=== PATIENT | female | born 1975 | race Caucasian/White ===

== ENCOUNTER 2016-04-19 18:24 | Inpatient (IN) | payer OTHER ==
[2015-09-25 15:43] VITALS: BP 127/88
[2016-04-19] MEDS ORDERED: RINGERS SOLUTION,LACTATED 1,000 ML IV ONE (18:34)
[2016-04-19 19:07] LABS: Hematocrit 31.8 % (37.0-47.0); Hemoglobin 10.8 gm/dL (12.5-16.0); Mean Cell Volume 92.4 fl (78-100); Mean Corpuscular Hemoglobin 31.4 pg (27-31); Mean Platelet Volume 9.5 fl (6.0-9.5); Neutrophil # 6.1 K/mm3 (1.3-6.0); Neutrophil % 71.9 % (42-75.0); Platelet Count 240 K/mm3 (150-450); Red Blood Count 3.44 M/mm3 (4.2-5.4); Red Cell Distribution Width 12.5 % (11.5-14.0); White Blood Count 8.5 K/mm3 (4.0-10.5)
[2016-04-19 19:14] LABS: Urine Appearance Slightly Cloudy; Urine Bilirubin Negative (NEGATIVE); Urine Blood 250 /ul (NEGATIVE); Urine Color Yellow; Urine Ketone Negative (NEGATIVE)
[2016-04-19 19:15] LABS: Urine Nitrite Negative (NEGATIVE); Urine Protein 30 mg/dL (NEGATIVE); Urine Urobilinogen Normal (NORMAL)
[2016-04-19 19:17] LABS: Urine Bacteria 3+; Urine RBC >50 /hpf (0-5); Urine WBC 0-5 /hpf (0-5)
[2016-04-19] MEDS ORDERED: BETAMETH ACET/BETAMET SOD PHOS 6 MG/ML VIAL IM ONE (19:17)
[2016-04-19 19:23] LABS: Albumin * 2.9 gm/dl (3.4-5.0); Anion Gap 13.8 mmol/L (6.8-13.8); BUN/Creatinine Ratio 12.9 (9.0-21.6); Bilirubin, Total 0.3 mg/dL (0.0-1.1); Ca. Corrected For Albumin 9.6 mg/dL (8.4-10.2); Carbon Dioxide 25.6 mmol/L (24-32.6); Potassium 3.4 mmol/L (3.4-4.6)
[2016-04-19 19:26] LABS: Cocaine Ur Negative (NEGATIVE); Urine Barbiturate Negative (NEGATIVE); Urine Benzodiazepines Negative (NEGATIVE); Urine Opiates Negative (NEGATIVE); Urine PCP Negative (NEGATIVE); Urine THC Negative (NEGATIVE)
[2016-04-19 19:43] LABS: INR 0.97 INR (0.90-1.10); Prothrombin Time (Patient) 10.1 Seconds (9.4-11.4)
[2016-04-19] MEDS ORDERED: MAGNESIUM SULFATE IN WATER 50 ML IV ONE (20:08)
[2016-04-19] MEDS ORDERED: MAGNESIUM SULFATE IN WATER 1,000 ML IV SCH (20:15)
== END 2016-04-19 21:00 | disposition short-term general hospital (02) | DRG 782 ==
LOC: OBCLINIC 18:24 → OB 19:12
PROVIDERS: ADMIT Obstetrics & Gynecology; ATTEND Obstetrics & Gynecology
DX: O45.93 Premature separation of placenta, unspecified, third trimester (principal); Z3A.31 31 weeks gestation of pregnancy; Z79.82 Long term (current) use of aspirin

== ENCOUNTER 2016-06-10 07:25 | Inpatient (IN) | payer OTHER ==
--- OUTSIDE RECORDS SUMMARY | 2016-06-10 07:30 | XMS REPORT | Continuity of Care Document ---
:1975 Author Organization [facility] ([facility]) Address [address] [place] [address] Phone [phone] Care Team Providers Name Role Phone Noemí Horowitz Primary Care Provider [phone] Source Comments This disclosure is being made pursuant to the Care Everywhere program, applicable federal and state laws, and may not contain all informaitonavailable regarding this patient.[facility] ([facility]) Active Allergies and Adverse Reactions No Known Allergies Current Medications Prescription Sig. Disp. Refills Start Date End Date Status multivitamin Take 1 tablet by Active with minerals 28-0.8 mg mouth daily. per tablet aspirin 81 mg EC tablet Take 81 mg by mouth Active daily. ferrous gluconate 324 mg Take 324 mg by Active (38 mg iron) tablet mouth daily. calcium carbonate (200 mg Take 200 mg by Active Ca) 500 mg chewable mouth 3 times tablet daily. Active Problems Problem Noted Date Factor V Leiden 04/19/2016 Currently Estimated Date of Delivery Comments Yes 06/18/2016 Based on Patient Reported Most Recent Encounters Date Type Specialty Providers Description 05/13/2016 Office Visit Maternal Savannah Washington I, Chief Comp: Patient Medicine MD Reported Reason For Visit 05/13/2016 Hospital Encounter Obstetrics Savannah Washington I, Dx: Vaginal MD bleeding 04/21/2016 Hospital Encounter General Care Inpatient - Adult 04/21/2016 Anesthesia Event General Care Sarah Mcdaniel, Inpatient - Adult 04/19/2016 - Hospital Encounter General Care Pamela Das, Dx: Normal IUP 04/21/2016 Inpatient - Adult (intrauterine Nuangchamnong, ) torin Murphy MD Lita Gallegos ultrasound, third M, trimester (Primary Dx) 04/19/2016 Telephone Obstetrics Pamella Howe MD Social History Tobacco Use Types Packs/Day Years Used Date Never Smoker Alcohol Use Drinks/Week oz/Week Comments Yes 0 Standard drinks or equivalent 0.0 Rarely, not while Last Filed Vital Signs Vital Sign Reading Time Taken Blood Pressure 108/68 04/21/2016 7:00 AM FINISHING ROOM SUPERVISOR Pulse 101 04/19/2016 11:21 PM FINISHING ROOM SUPERVISOR Temperature 37 C (98.6 F) 04/21/2016 4:00 AM FINISHING ROOM SUPERVISOR Respiratory Rate 17 04/20/2016 11:00 PM FINISHING ROOM SUPERVISOR Height 1.651 m (5' 5") 04/19/2016 11:09 PM FINISHING ROOM SUPERVISOR Weight 58.968 kg (130 lb) 04/19/2016 11:09 PM FINISHING ROOM SUPERVISOR Body Mass Index 21.63 04/19/2016 11:09 PM FINISHING ROOM SUPERVISOR Oxygen Saturation - - Plan of Care Health Maintenance Due Date Last Done Comments Hepatitis B Vaccine (1 of 3 - Primary Series) 1975 Tdap Vaccine 1987 Lipid Disorder Screening 1994 MMR Vaccine 1994 Td Vaccine 1994 Cervical Cancer Screening 2006 09/13/2002 Influenza Vaccine: Seasonal (#1) 10/08/2015 Mammogram 2016 Results from Last 3 Months BOAT PULLER/ DIAGNOSIS ULTRASOUND (05/13/2016 12:32 PM) Narrative Obstetric Ultrasound Report Limited Scan Referral from: Dr. Jordan Groves [place] [address] Department of Obstetrics & Gynecology [address] [place], [place] OB Clinic IVF/ Endocrine PATIENT INFORMATION: Name: KLAUDIA AC#: [id number] Age:41 y/oExam Date: 05/13/2016 :1975 Visit #: 1 LMP:Not Available Location: Diagnosis & Treatment Unit # Fetuses: 1 INDICATION:Patient with vaginal bleeding.Advanced maternal age. History of PTD x2 for HELLP and PET. Evaluate growth and complete anatomy. DATING: Assigned GA GA by LMPGA by US (WISAM)WISAM NA 34 4/7 wks 34 6/7 wks06/18/16 BIOMETRY: BPD: 88.9 mm36 0/7 wksHC:314.1 mm 35 2/7 wks(35%) (67%) Femur: 65.2 mm33 4/7 wksAC:330.2 mm 37 0/7 wks(85%) (33%) EFW: 2770 gms6 lbs 2 oz (78%) Lat Ventricles: 5.2 mm Heart Rate: 146 bpm FL/AC:0.2FL/BPD: 0.73 PRESENTATION/CORD/PLACENTA/FLUID/CERVIX: Presentation: Cephalic Placenta: Anterior.There Is No Evidence Of Placenta Previa. Amniotic Fluid: Maximum Vertical Pocket=64 mm.Subjective AF Volume : Normal. (LHC=029 mm) ANATOMICAL SURVEY: Normal ------ Lateral Ventricles Four Chamber View Cardiac Woodworth Cardiac Position Heart Rate Diaphragm StomachKidney - Left Kidney - Right Bladder Hand - Right Abnormal -------- None identified EFW Summary Table Exam DateFetus #EFW Percentile ------ - 05/13/16 [id number] % 55 % AMNIOTIC FLUID VOLUME: NORMALTotal CHERIE: 182 mm.Subjective AF Volume: Normal. Maximum Vertical Pocket:64 mm CERVIX: Suboptimal visualization COMMENTS: I attest to having personally viewed the images and my comments and impression are as follows: The exam was limited due to the late gestational age. The exam was limited to growth, fluid and limited anatomy. IUP consistent with given WISAM. Appropriate amniotic fluid. The anatomical survey was completed on today's ultrasound. These reassuring findings were discussed with Klaudia and her . Thank you for the opportunity to participate in your patient's care. Dr. Savannah Washington MD ([id number]) Dr. Ester Lucas MD Nuclear Fuel Enrichment Technician: Mali Granda RDMS RVT Procedure Note Juanito, Incoming Imaging Results - Tue May 13, 2016 11:48 AM FINISHING ROOM SUPERVISOR Obstetric Ultrasound Report Limited Scan Referral from: Dr. Jordan Groves [facility] [address] Department of Obstetrics &[place] [address] [address] [place], [place] OB Clinic IVF/ Endocrine PATIENT INFORMATION: Name: KLAUDIA ADAM MR#: [id number] Age: 41 y/o Exam Date: 05/13/2016 : 1975 Visit #: 1 LMP: Not Available Location: Diagnosis & Treatment Unit # Fetuses: 1 INDICATION: Patient with vaginal bleeding. Advanced maternal age.History of PTD x2 for HELLP and PET. Evaluate growth and complete anatomy. DATING: Assigned GA GA by LMP GA by US (WISAM) WISAM NA 34 4/7 wks 34 6/7 wks 06/18/16 BIOMETRY: BPD: 88.9 mm 36 0/7 wks HC: 314.1 mm 35 2/7 wks(35%) (67%) Femur: 65.2 mm 33 4/7 wks AC: 330.2 mm 37 0/7 wks(85%) (33%) EFW: 2770 gms 6 lbs 2 oz (78%) Lat Ventricles: 5.2 mm Heart Rate: 146 bpm FL/AC: 0.2 FL/BPD: 0.73 PRESENTATION/CORD/PLACENTA/FLUID/CERVIX: Presentation: Cephalic Placenta: Anterior. There Is No Evidence Of Placenta Previa. Amniotic Fluid: Maximum Vertical Pocket=64 mm. Subjective AFVolume: Normal. (KVP=388 mm) ANATOMICAL SURVEY: Normal ------ Lateral Ventricles Four Chamber View Cardiac Woodworth Cardiac Position Heart Rate Diaphragm Stomach Kidney - Left Kidney - Right Bladder Hand - Right Abnormal -------- None identified EFW Summary Table Exam Date Fetus # EFW Percentile --------- ------- ---- 05/13/16 1 2770 78 % 04/21/16 1 1815 55 % AMNIOTIC FLUID VOLUME: NORMAL Total CHERIE: 182 mm. Subjective AF Volume: Normal. Maximum Vertical Pocket: 64 mm CERVIX: Suboptimal visualization COMMENTS: I attest to having personally viewed the images and my comments and impression are as follows: The exam was limited due to the late gestational age. The exam was limited to growth, fluid and limited anatomy. IUP consistent with given WISAM. Appropriate amniotic fluid. The anatomical survey was completed on today's ultrasound. These reassuring findings were discussed with Klaudia and her . Thank you for the opportunity to participate in your patient's care. Dr. Savannah Washington MD ([id number]) Dr. Ester Lucas MD Nuclear Fuel Enrichment Technician: Mali Granda RDMS T OB ULTRASOUND (LDR) (04/21/2016 10:47 AM) Narrative Obstetric Ultrasound Report Detailed Survey Referral from: Dr. Jordan Groves [facility] [address] Department of Obstetrics & [place] [place] [address] PATIENT INFORMATION: Name: BRIA AC#: [id number] Age:40 y/oExam Date: 04/21/2016 :1975 Visit #: 1 LMP:Not Available Location:Labor and Delivery # Fetuses: 1 INDICATION:Patient referred for a 4 cm hematoma and vaginal bleeding. History of PET at 36 weeks, HELLP at 25 and Factor V Leiden. DATING: Assigned GA GA by LMPGA by US (WISAM)WISAM NA 31 3/7 wks 31 5/7 wks06/18/16 BIOMETRY: BPD: 81.2 mm32 4/7 wksHC:295.0 mm 32 4/7 wks(41%) (58%) Femur: 59.5 mm31 0/7 wksAC:277.2 mm 31 5/7 wks(48%) (36%) EFW: 1815 gms4 lbs 0 oz (55%) Lat Ventricles: 4.96 mmCisterna Magna: 7.07 mm Nasal Bone: Present-12.3 mmFetal Heart Rate: 124 bpm FL/AC:0.21 HL/BPD: 0.65 FL/BPD: 0.73 Humerus:52.9 mm30 6 (36%) PRESENTATION/CORD/PLACENTA/FLUID/CERVIX: Presentation: Cephalic Umbilical Cord: 3 Vessel Cord.Normal insertion into the placenta. Placenta: Anterior.There Is No Evidence Of Placenta Previa. Amniotic Fluid: Maximum Vertical Pocket=70 mm.Subjective AF Volume : Normal. (SWW=996 mm) Cervix: Normal ANATOMICAL SURVEY: Normal ------ Lateral Ventricles Cerebellum Cisterna Magna Profile Palate Nose Lips Cervical Spine Thoracic Spine Lumbar Spine Sacrum Four Chamber View RVOT LVOT Aortic ArchCardiac Woodworth Cardiac Position Heart Rate Ductal ArchIVC SVC Diaphragm Ventral Wall Stomach Kidney - LeftKidney - Right Bladder Forearm - Left Forearm - RightHand - Left Lower Leg - Left Lower Leg - Right Foot - LeftFoot - Right Suboptimal Hand - Right Abnormal -------- None identified TARGETED CARDIAC: Ductal Arch: Normal IVC: Normal SVC: Normal MANAGER MULTIMEDIA FINDINGS: Ovaries:Left:Not Seen Right: Not Seen EFW Summary Table Exam DateFetus #EFW Percentile ------ - [id number] 55 % AMNIOTIC FLUID VOLUME: NORMALTotal CHERIE: 232 mm.Subjective AF Volume: Normal. Maximum Vertical Pocket:70 mm CERVIX: Visualized Cervical Evaluation: Yes Cervical Approach: Transabdominal COMMENTS: I attest to having personally viewed the images and my comments and impression are as follows: The exam was limited due to the late gestational age. IUP consistent with given WISAM. Within the limits of ultrasound, no structural anomalies were seen. Appropriate amniotic fluid. The nasal and humerus measure within the normal limits. I consulted on this patient on labor and delivery. Please see separate EPIC note. No evidence of previa or low lying placenta on today's scan. Some fine echogenic material in amniotic fluid in certain views. No apparent hematoma type structure on today's scan. Patient improved and reports minimal/scant vaginal bleeding. Please follow up as clinically indicated. Discussed findings with Dr Mercado. Follow up scan in 3-4 weeks for growth is recommended. Thank you for allowing our unit to contribute to your patient's care. Katalina Lora, D.O. Dr. Katalina Lora MD ([id number]) Nuclear Fuel Enrichment Technician: Mali Granda RDMS RVT Procedure Note Juanito, Incoming Imaging Results - ThuApr 21, 2016 11:16 AM FINISHING ROOM SUPERVISOR Obstetric Ultrasound Report Detailed Survey Referral from: Dr. Jordan Groves [facility] [address] Department of Obstetrics &[place] [address] [address] [place], [place] PATIENT INFORMATION: Name: BRIA ADAM MR#: [id number] Age: 40 y/o Exam Date: 04/21/2016 : 1975 Visit #: 1 LMP: Not Available Location: Labor and Delivery # Fetuses: 1 INDICATION: Patient referred for a 4 cm hematoma and vaginal bleeding. History of PET at 36 weeks, HELLP at 25 and Factor V Leiden. DATING: Assigned GA GA by LMP GA by US (WISAM) WISAM NA 31 3/7 wks 31 5/7 wks 06/18/16 BIOMETRY: BPD: 81.2 mm 32 4/7 wks HC: 295.0 mm 32 4/7 wks(41%) (58%) Femur: 59.5 mm 31 0/7 wks AC: 277.2 mm 31 5/7 wks(48%) (36%) EFW: 1815 gms 4 lbs 0 oz (55%) Lat Ventricles: 4.96 mm Cisterna Magna: 7.07 mm Nasal Bone: Present-12.3 mm Heart Rate: 124 bpm FL/AC: 0.21 HL/BPD: 0.65 FL/BPD: 0.73 Humerus: 52.9 mm 306 (36%) PRESENTATION/CORD/PLACENTA/FLUID/CERVIX: Presentation: Cephalic Umbilical Cord: 3 Vessel Cord. Normal insertion into the placenta. Placenta: Anterior. There Is No Evidence Of Placenta Previa. Amniotic Fluid: Maximum Vertical Pocket=70 mm. Subjective AFVolume: Normal. (ZGA=021 mm) Cervix: Normal ANATOMICAL SURVEY: Normal ------ Lateral Ventricles Cerebellum Cisterna Magna Profile Palate Nose Lips Cervical Spine Thoracic Spine Lumbar Spine Sacrum Four Chamber View RVOT LVOT Aortic Arch Cardiac Woodworth Cardiac Position Heart Rate Ductal Arch IVC SVC Diaphragm Ventral Wall Stomach Kidney - Left Kidney - Right Bladder Forearm - Left Forearm - Right Hand - Left Lower Leg - Left Lower Leg - Right Foot - Left Foot - Right Suboptimal Hand - Right Abnormal -------- None identified TARGETED CARDIAC: Ductal Arch: Normal IVC: Normal SVC: Normal MANAGER MULTIMEDIA FINDINGS: Ovaries: Left: Not Seen Right: Not Seen EFW Summary Table Exam Date Fetus # EFW Percentile --------- ------- ---- 04/21/16 1 1815 55 % AMNIOTIC FLUID VOLUME: NORMAL Total CHERIE: 232 mm. Subjective AF Volume: Normal. Maximum Vertical Pocket: 70 mm CERVIX: Visualized Cervical Evaluation: Yes Cervical Approach: Transabdominal COMMENTS: I attest to having personally viewed the images and my comments and impression are as follows: The exam was limited due to the late gestational age. IUP consistent with given WISAM. Within the limits of ultrasound, no structural anomalies were seen. Appropriate amniotic fluid. The nasal and humerus measure within the normal limits. I consulted on this patient on labor and delivery. Please see separate EPIC note. No evidence of previa or low lying placenta on today's scan. Some fine echogenic material in amniotic fluid in certain views. No apparent hematoma type structure on today's scan. Patient improved and reports minimal/scant vaginal bleeding. Please follow up as clinically indicated. Discussed findings with Dr Mercado. Follow up scan in 3-4 weeks for growth is recommended. Thank you for allowing our unit to contribute to your patient's care. Katalina Lora D.O. Dr. Katalina Lora MD ([id number]) Nuclear Fuel Enrichment Technician: Mali Granda RDMS RVT GROUP B STREP CULTURE (04/20/2016 2:08 PM) Component Value Range Group B Culture Growth Streptococcus agalactiae(A) Specimen Vaginal/Rectal Narrative Identification performed by MALDI-TOF mass spectrometry (MS).The performance characteristics of MALDI-TOF MS were determined by the [facility].It has not been cleared orApproved by the FDA. The FDA has determined that such clearance or approval is not necessary.This test is for clinical purposes. It should not be regarded as investigational or for research.The laboratory is certified under the Clinical Laboratory Improvement Amendments of 1988 (CLIA) as qualified to perform high complexity clinical laboratory testing. Organism Antibiotic Method Susceptibility Streptococcus agalactiae CEFTRIAXONE <=0.12: Susceptible Streptococcus agalactiae CLINDAMYCIN <=0.12: Susceptible Streptococcus agalactiae PENICILLIN G 0.06: Susceptible Streptococcus agalactiae VANCOMYCIN <=0.5: Susceptible GROUP B STREPTOCOCCUS PCR (04/20/2016 2:08 PM) Component Value Range GRPBPCR Positive(A)Comment: Negative Call laboratory [phone]) to request antimicrobial susceptibility testing if patient is beta-lactam allergic. Specimen Vaginal/Rectal Narrative Test methodology:Nucleic acid amplification; illumigene Assay (Particle) The performance characteristics of this test were determined by the [facility].It has not been cleared or approved by the U.S. Food and DrugAdministration (FDA). The FDA has determined that such clearance or approval is not necessary.This test is for clinical purposes.It should not be regarded as investigational or for research. The laboratory is certified under the Clinical Laboratory Improvement Amendments of 1988 (CLIA) as qualified to perform high complexity clinical laboratory testing. TYPE AND SCREEN (BLOOD TYPE(ABORH) AND RBC ANTIBODY SCREEN) (04/19/2016 11:01 PM ) Component Value Range ABORH O Positive Specimen Expiration Date 2016-04-22 Antibody Screen Negative Specimen Blood FIBRINOGEN (04/19/2016 10:58 PM) Component Value Range Fibrinogen 525(H) 180-400 mg/dL Specimen Blood PT/INR (PROTHROMBIN TIME/INR) VENOUS (04/19/2016 10:58 PM) Component Value Range PT (Prothrombin Time) 10 9-12 secs INR 0.9 <4.0 Specimen Blood CBC (COMPLETE BLOOD COUNT) (04/19/2016 10:58 PM) Component Value Range WBC Count 12.5(H) 3.7-10.5 K/MM3 RBC Count 3.42(L) 4.00-5.20 M/MM3 Hemoglobin 10.8(L) 11.9-15.5 g/dL Hematocrit 31(L) 35-47 % MCV (Mean Corpuscular Volume) 91 82-99 FL MCH (Mean Corpuscular Hemoglobin) 32 25-35 PG MCHC (Mean Corpuscular Hemoglobin Concentration) 35 32-36 % Platelet Count 227 150-400 K/MM3 MPV (Mean Platelet Volume) 9.4 9.4-12.3 FL RBC Dist Width-STD 40.7 36.4-46.3 FL RBC Distrib Width 12.4 9.0-14.5 % Nucleated RBC 0 /100 WBC Specimen Whole Blood
[2016-06-10] MEDS ORDERED: PENICILLIN G POTASSIUM 5 MILLIONUNT in DEXTROSE 5 % IN WATER 100 ML IV ONE ×2 (07:31)
[2016-06-10] MEDS ORDERED: RINGERS SOLUTION,LACTATED 1,000 ML IV ONE (07:31)
[2016-06-10] MEDS ORDERED: RINGERS SOLUTION,LACTATED 1,000 ML IV PRN (07:31)
[2016-06-10] MEDS ORDERED: LIDOCAINE HCL 50 ML VIAL PERI PRN (07:31)
[2016-06-10] MEDS ORDERED: OXYTOCIN/DEXTROSE 5%-WATER 30 UNITS/500 ML BAG IV ONE ×2 (07:31→12:00)
[2016-06-10] MEDS ORDERED: BUPIVACAINE HCL/0.9 % NACL/PF 250 ML EP PRN (07:46)
--- NOTE | 2016-06-10 07:50 | OR ---
Anesthesia Pre Procedure Eval Date of Service: 06/10/16 Pre Procedure Evaluation: Last Vital Signs Temp 36.2 C L 05/18/12 20:55 Pulse Resp BP 127/88 09/25/15 15:42 Pulse Ox Anesthesia Pre Procedure Evaluation Heart Rate:81 Blood Pressure:138/92 Termperature:36.7 Respiratory Rate:20 SaO2:99 DATE: 06/10/2016 TIME: INDICATIONS: Active labor, labor pain PAST MEDICAL HISTORY: Multipara patient in active labor requesting labor analgesia. She is currently at 7 cm dilatation. EXAM: Heart regular; lungs clear ASSESSMENT OF MEDICAL STATUS: Appropriate candidate for labor analgesia PLANNED PROCEDURE: Combination spinal epidural for labor analgesia Home Medications: HOME MEDICATIONS Aspirin [Aspirin Chewable] 81 mg PO DAILY 04/07/16 [Last Taken 04/18/16 09:00] Ferrous Sulfate [Iron] 325 mg PO DAILY 04/07/16 [Last Taken 04/18/16 09:00] Vit#96/Ferrous Fum/FA [ S] 1 tab PO DAILY 04/07/16 [Last Taken 04/18/16 09:00]
[2016-06-10] MEDS ORDERED: fentaNYL CITRATE/PF 50 MCG/ML AMPUL IT SCH (08:00)
--- NOTE | 2016-06-10 08:10 | OR ---
Anesthesia Procedure Note - Anesthesia Procedure Note Date of Service: 06/10/16 Narrative: Vital Signs - Last Taken Temp 36.2 C L 05/18/12 20:55 Pulse Resp BP 127/88 09/25/15 15:42 Pulse Ox 06/10/16 08:07 ANESTHESIA PROCEDURE NOTE Date of Procedure: 06/10/2016 Time of procedure: 750. Performed by: FRANKI Gan CRNA, MSN Industrial Sales Manager: Landy Gonzalez RN. Preprocedure diagnosis: Labor, labor pain. Post procedure diagnosis: Same. Procedure: Labor Epidural Placement L3 4. Indications: Labor pain. Findings: See below. Details of the procedure: The patient was placed on the side of the bed in sitting position. The patient was prepped with DuraPrep and draped in a sterile fashion. Lidocaine 1% was infiltrated to the skin and subcutaneous tissues at the level of the L3 4 interspace. The epidural space was identified using a 18-gauge Tuohy needle with [id number] technique. Fentanyl 20 g was given intrathecally the intrathecal needle was then removed and the epidural catheter was threaded approximately 4 cm, the epidural needle was then removed, and after careful aspiration 3 mL of 1.5% lidocaine with 1-200,000 epinephrine was injected without change in maternal heart rate or sensorium. The catheter was then taped in place. EBL: Minimal. Fluids: N/A. Specimen: N/A. Post procedure condition: The patient tolerated the procedure well with good relief. No complications were noted. Thank you for this consultation. Kip Asencio CRNA, ARNP, MSN
[2016-06-10 08:51] LABS: Hemoglobin 11.9 gm/dL (12.5-16.0); Mean Cell Volume 91.4 fl (78-100); Mean Corpuscular Hemoglobin 30.2 pg (27-31); Mean Corpuscular Hgb Conc 33.1 g/dl (32-36); Mean Platelet Volume 10.2 fl (6.0-9.5); Neutrophil # 6.8 K/mm3 (1.3-6.0); Neutrophil % 76.7 % (42-75.0); Platelet Count 249 K/mm3 (150-450); Red Blood Count 3.94 M/mm3 (4.2-5.4); Red Cell Distribution Width 13.2 % (11.5-14.0); White Blood Count 8.8 K/mm3 (4.0-10.5)
[2016-06-10 09:05] LABS: Albumin * 2.6 gm/dl (3.4-5.0); Anion Gap 12.6 mmol/L (6.8-13.8); BUN/Creatinine Ratio 13.7 (9.0-21.6); Ca. Corrected For Albumin 9.6 mg/dL (8.4-10.2); Calcium * 8.8 mg/dL (7.9-10.9); Carbon Dioxide 24.6 mmol/L (24-32.6); Potassium 4.2 mmol/L (3.4-4.6); Total Protein 6.6 gm/dL (6.2-8.2)
[2016-06-10 09:20] LABS: Bilirubin, Total 0.3 mg/dL (0.0-1.1)
[2016-06-10 09:33] LABS: Random Urine Total Protein 24.4 mg/dL (0-12)
[2016-06-10] MEDS ORDERED: PENICILLIN G POTASSIUM 2.5 MILLIONUNT in DEXTROSE 5 % IN WATER 100 ML IV SCH ×2 (11:32)
[2016-06-10] MEDS ORDERED: OXYTOCIN/DEXTROSE 5%-WATER 500 UNITS/8,333.33 ML BAG IV ONE (11:41)
[2016-06-10] MEDS ORDERED: oxyCODONE HCL/ACETAMINOPHEN 1 TAB TABLET PO PRN (11:41)
[2016-06-10] MEDS ORDERED: SENNOSIDES 8.6 MG TABLET PO PRN (11:41)
[2016-06-10] MEDS ORDERED: BENZOCAINE/MENTHOL 81 SPRAY CAN TP PRN (11:41)
[2016-06-10] MEDS ORDERED: GLYCERIN/WITCH HAZEL LEAF 40 APPL BOX TP PRN (11:41)
[2016-06-10] MEDS ORDERED: HYDROCORTISONE 30 APPL TUBE TP PRN (11:41)
[2016-06-10] MEDS ORDERED: BISACODYL 10 MG SUPP.RECT RC PRN (11:41)
--- NOTE | 2016-06-10 11:56 | OR ---
Operative Report - Dictated Report Narrative: Spontaneous vaginal delivery of viable male in FELY position at 1124 on 06/10/2016 with Apgars 9 and 9, weighing 3388 g. Cord clamping delayed approximately 1 minute Placenta delivered complete, intact, with three vessel cord Estimated blood loss: less than 50 ml Lacerations: None History for MU Definition: * The number of deliveries resulting in a live the patient experienced prior to current hospitalization * The previous delivery of live twins or any live multiple gestation is considered one live event. *If primagravida or nulliparous is documented select zero for the number of previous live births. Live Events: 4
[2016-06-10] MEDS: IBUPROFEN 800 MG TABLET PO PRN (13:13)
[2016-06-10] MEDS: oxyCODONE HCL/ACETAMINOPHEN 1 TAB TABLET PO PRN ×2 (13:13→16:28)
[2016-06-10] MEDS: DOCUSATE SODIUM 100 MG CAPSULE PO SCH (21:06)
[2016-06-11] MEDS: IBUPROFEN 800 MG TABLET PO PRN ×4 (00:07→20:49)
[2016-06-11] MEDS: oxyCODONE HCL/ACETAMINOPHEN 1 TAB TABLET PO PRN ×5 (02:02→20:48)
--- NOTE | 2016-06-11 09:20 | PN ---
Subjective - Date and Time Seen Date: 06/11/16 Time: 09:18 Objective - Vitals Vitals: Last Vital Signs Temp 36.6 C 06/11/16 06:35 Pulse 68 06/11/16 06:35 Resp 18 06/11/16 06:35 BP 146/85 06/11/16 08:30 Pulse Ox 99 06/11/16 06:35 Patient denies complaints. Lochia wnl Abdomen - soft, nontender Uterus - firm, at umbilicus - 1 No calf tenderness Impression: day #1 - s/p spontaneous vaginal delivery. Mild preeclampsia-stable. Plan: Continue routine care. Monitor blood pressures and observe for signs and symptoms of severe preeclampsia - Abnormal Lab Findings Abnormal Lab Findings: Abnormal Lab Results 06/10/16 Range/Units 09:10 Ur Random Creatinine 55.4 L (60-200) mg/dL U Random Total Protein 24.4 H (0-12) mg/dL U Sarles Prot/Creat Ratio 440 H (0-199) mg/gm Cauti Physician Documentation - Urinary Catheter Management Urethral (Wang) Date of Insertion: 06/10/16 Time of Insertion: 09:10 Date of Removal: 06/10/16 Time of Removal: 11:15
[2016-06-11] MEDS: PRENATAL VIT#96/FERROUS FUM/FA 1 TAB TABLET PO SCH (09:32)
[2016-06-11] MEDS: FERROUS SULFATE 325 MG TABLET PO SCH (09:33)
[2016-06-11] MEDS: DOCUSATE SODIUM 100 MG CAPSULE PO SCH ×2 (09:33→20:48)
[2016-06-12] MEDS: oxyCODONE HCL/ACETAMINOPHEN 1 TAB TABLET PO PRN ×3 (01:51→11:15)
[2016-06-12] MEDS: IBUPROFEN 800 MG TABLET PO PRN (04:14)
--- NOTE | 2016-06-12 08:49 | PN ---
Subjective - Date and Time Seen Date: 06/12/16 Time: 08:48 Objective - Vitals Vitals: Last Vital Signs Temp 37.0 C 06/12/16 07:35 Pulse 96 06/12/16 07:35 Resp 16 06/12/16 07:35 BP 147/80 06/12/16 07:35 Pulse Ox 98 06/12/16 07:35 Patient denies complaints. Lochia wnl Abdomen - soft, nontender Uterus - firm, at umbilicus - 2 No calf tenderness Impression: day #2 - s/p spontaneous vaginal delivery. Preeclampsia- stable Plan: Routine discharge instructions. Preeclampsia precautions. Follow-up in the office in 1 week for blood pressure check. Cauti Physician Documentation - Urinary Catheter Management Urethral (Wang) Date of Insertion: 06/10/16 Time of Insertion: 09:10 Date of Removal: 06/10/16 Time of Removal: 11:15
[2016-06-12] MEDS: FERROUS SULFATE 325 MG TABLET PO SCH (09:41)
[2016-06-12] MEDS: DOCUSATE SODIUM 100 MG CAPSULE PO SCH (09:41)
[2016-06-12] MEDS: PRENATAL VIT#96/FERROUS FUM/FA 1 TAB TABLET PO SCH (09:42)
[2016-06-12 11:36] VITALS: BP 132/75
== END 2016-06-12 13:44 | disposition home or self-care (01) | DRG 775 ==
LOC: OB 07:25
PROVIDERS: ADMIT Obstetrics & Gynecology; ATTEND Obstetrics & Gynecology
PROC: 10E0XZZ Delivery of Products of Conception, External Approach (ICD-10-PCS; principal; 2016-06-10)
PROC: 4A1H7CZ Monitoring of Products of Conception, Cardiac Rate, Via Natural or Artificial Opening (ICD-10-PCS; 2016-06-10)
PROC: 3E0S3CZ (ICD-10-PCS; 2016-06-10)
DX: O11.4 Pre-existing hypertension with pre-eclampsia, complicating childbirth (principal); O99.824 Streptococcus B carrier state complicating childbirth; O99.02 Anemia complicating childbirth; D50.8 Other iron deficiency anemias; Z3A.39 39 weeks gestation of pregnancy; Z37.0 Single live birth; Z79.82 Long term (current) use of aspirin